=== PATIENT | male | born 1970 | race Caucasian/White ===

== ENCOUNTER → 2016-12-09 | Outpatient (CLI) | payer BC ==
[~2016-12-09] MED LIST: CELEBREX PO; CLARITIN10 MG PO; INDERAL20 MG PO; MULTIPLE VITAMI1 T11 PO; NASALIDE INHALE25 ML; NASONEX17 GM; PROTONIX; ZANTAC PO; ZYRTEC10 M1 PO
--- NOTE | ~2016-12-09 | EKG ---
PATIENT: [address] UNIT #: [id number] Ventricular Rate: 59 BPM Atrial Rate: 59 BPM P-R Interval: 146 ms QRS Duration: 100 ms Q-T Interval: 414 ms QTC Calculation(Bezet): 409 ms P [place]: 10 degrees Calculated R [place]: 93 degrees Calculated T [place]: 26 degrees Diagnosis Line: Sinus bradycardia Diagnosis Line: Rightward axis Diagnosis Line: Borderline ECG Diagnosis Line: No previous ECGs available Diagnosis Line: Confirmed by SOLIS TIMMONS MD ([id number]) on 12/10/2016 Diagnosis Line: 12:07:38 AM INTERPRETING MD: SHANELLE LOPEZ
[2016-12-09 12:49] LABS: HEMATOCRIT 46.3 % (38.0-50.0); HEMOGLOBIN 16.2 gm/dL (13.0-16.0); MEAN CELL VOLUME 88.6 FL (83-96); MEAN PLATELET VOLUME 6.3 FL (6.5-11.5); RED BLOOD COUNT 5.23 X10e (3.90-5.60); RED CELL DISTRIBUTION WIDTH 12.8 % (11.0-15.5); WHITE BLOOD COUNT 5.4 X10e3 (4.0-10.5)
[2016-12-09 13:23] LABS: BUN/CREATININE RATIO 12.14; CALCIUM SERUM 9.7 mg/dL (8.4-10.2); CREATININE SERUM 1.4 mg/dL (0.6-1.4); POTASSIUM 4.1 mmol/L (3.5-5.1)
== END | disposition home or self-care (01) ==
LOC: CEKG 12:09
PROVIDERS: Anesthesiology
DX: Z01.818 Encounter for other preprocedural examination (principal); N20.2 Calculus of kidney with calculus of ureter
CPT/HCPCS: 36415; 80048; 85027; 93005